=== PATIENT | male | born 1990 | race Caucasian/White ===

== ENCOUNTER 2017-11-18 17:55 | Emergency (ER) | payer MEDICAID ==
--- NOTE | 2017-11-18 18:36 | EDPHY ---
H & P Stated Complaint: wednesday chest pain intermittent palpitations Time Seen by Provider: 11/18/17 18:21 HPI/ROS: CHIEF COMPLAINT: Chest pain, intermittent palpitations HISTORY OF PRESENT ILLNESS: Patient presents to the ED with several days of a mild anterior chest pain not worsened with exertion or inspiration and subjective palpitations. The patient reports he has been experiencing increased stress. The patient denies any asymmetric calf pain or swelling. The patient does attribute his symptoms to possible anxiety however was somewhat uncertain and wanted an evaluation in the ED. The patient denies fever , cough or congestion. He denies additional acute complaints. The patient takes no regular prescription medications. REVIEW OF SYSTEMS: A comprehensive 10 point review of systems is otherwise negative aside from elements mentioned in the history of present illness. Source: Patient Exam Limitations: No limitations - Personal History Current Tetanus Diphtheria and Acellular Pertussis (TDAP): Yes - Medical/Surgical History Hx Asthma: No Hx Chronic Respiratory Disease: No Hx Diabetes: No Hx Cardiac Disease: No Hx Renal Disease: No Hx Cirrhosis: No Hx Alcoholism: No Hx HIV/AIDS: No Hx Splenectomy or Spleen Trauma: No Other PMH: denies - Social History Smoking Status: Current some day smoker - Physical Exam Exam: General Appearance: Alert, no distress Eyes: Pupils equal and round no pallor or injection ENT, Mouth: Mucous membranes moist Respiratory: There are no retractions, lungs are clear to auscultation Cardiovascular: Regular rate and rhythm Gastrointestinal: Abdomen is soft and nontender, no masses, bowel sounds normal Neurological: A&O, normal motor function, normal sensory exam, normal cranial nerves Skin: Warm and dry, no rashes Musculoskeletal: Neck is supple nontender Extremities: symmetrical, full range of motion Constitutional: Initial Vital Signs Temperature (C) 36.6 C 11/18/17 18:00 Heart Rate 73 11/18/17 18:00 Respiratory Rate 18 11/18/17 18:00 Blood Pressure 115/76 11/18/17 18:00 O2 Sat (%) 99 11/18/17 18:00 O2 Delivery Mode Room Air Allergies/Adverse Reactions: Penicillins Allergy (Verified 11/18/17 17:59) Home Medications: Medication Instructions Recorded NK [No Known Home Meds] 11/18/17 Medical Decision Making - Diagnostics EKG Interpretation: EKG: Complete interpretation has been separately recorded in the [employer] archive. Summary impression: Sinus rhythm, no ischemic changes noted, no arrhythmia Imaging Results: Imaging Impressions Chest X-Ray 11/18/17 18:35 Impression: Normal chest. ED Course/Re-evaluation: The patient presents to the ED with palpitations and chest pain. The patient does admit to being under fair amount of stress. The patient has no risk factors for cardiac disease. The patient exercises frequently without chest pain or shortness of breath. The patient's EKG demonstrates no evidence of arrhythmia or ischemia. The patient's chest x-ray demonstrates no evidence of acute disease. The patient was monitored in the emergency department for 2 hr without arrhythmia. His troponin is normal. At this point time my suspicion for acute coronary syndrome is low. I do feel that the patient can follow up with Cardiology for any ongoing palpitations. The patient will be discharged home with customary aftercare instructions and return precautions. Differential Diagnosis: Differential diagnosis considered includes anxiety reaction, acute coronary syndrome, arrhythmia, metabolic abnormality, dehydration, pneumothorax - Data Points Laboratory Results: Laboratory Results 11/18/17 18:34 11/18/17 18:30 11/18/17 11/18/17 11/18/17 18:43 18:34 18:30 WBC 6.18 10^3/uL 10^3/uL (3.80-9.50) RBC 4.40 10^6/uL 10^6/uL (4.40-6.38) Hgb 14.2 g/dL g/dL (13.7-17.5) Hct 42.2 % % (40.0-51.0) MCV 95.9 fL fL (81.5-99.8) MCH 32.3 pg pg (27.9-34.1) MCHC 33.6 g/dL g/dL (32.4-36.7) RDW 12.5 % % (11.5-15.2) Plt Count 278 10^3/uL 10^3/uL (150-400) MPV 9.0 fL fL (8.7-11.7) Neut % (Auto) 52.0 % % (39.3-74.2) Lymph % (Auto) 37.4 % % (15.0-45.0) [place] % (Auto) 8.1 % % (4.5-13.0) Eos % (Auto) 1.6 % % (0.6-7.6) Baso % (Auto) 0.6 % % (0.3-1.7) Nucleat RBC Rel Count 0.0 % % (0.0-0.2) Absolute Neuts (auto) 3.21 10^3/uL 10^3/uL (1.70-6.50) Absolute Lymphs (auto) 2.31 10^3/uL 10^3/uL (1.00-3.00) Absolute Monos (auto) 0.50 10^3/uL 10^3/uL (0.30-0.80) Absolute Eos (auto) 0.10 10^3/uL 10^3/uL (0.03-0.40) Absolute Basos (auto) 0.04 10^3/uL 10^3/uL (0.02-0.10) Absolute Nucleated RBC 0.00 10^3/uL 10^3/uL (0-0.01) Immature Gran % 0.3 % % (0.0-1.1) Immature Gran # 0.02 10^3/uL 10^3/uL (0.00-0.10) Sodium 139 mEq/L mEq/L (135-145) Potassium 4.6 mEq/L mEq/L (3.3-5.0) Chloride 106 mEq/L mEq/L (97-110) Carbon Dioxide 28 mEq/l mEq/l (22-31) Anion Gap 5 mEq/L L mEq/L (8-16) BUN 19 mg/dL mg/dL (7-23) Creatinine 1.2 mg/dL mg/dL (0.7-1.3) Estimated GFR > 60 Glucose 78 mg/dL mg/dL (70-100) Calcium 9.4 mg/dL mg/dL (8.5-10.4) POC Troponin I 0.00 ng/mL ng/mL (0.00-0.08) Point of Care Test Results: Chemistry 11/18/17 18:43 POC Troponin I 0.00 ng/mL ng/mL (0.00-0.08) Departure - Departure Disposition: Home, Routine, Self-Care Clinical Impression: Chest pain Condition: Good Instructions: Chest Pain (ED) Additional Instructions: 1. The workup in the emergency department is unrevealing for evidence of heart attack, cardiac arrhythmia or other serious explanation for chest pain. 2. It is certainly possible that stress is resulting in your symptoms of chest pain. 3. You have been given the number of our on-call nanotechnology engineering technologist if you continue to have palpitations. You should follow up with them and they may place you on an outpatient monitor for further arrhythmia monitoring. 4. Please return to the ED for markedly worsening symptoms, difficulty breathing or other concerns. Referrals: Carlos A Arguello MD [Medical Doctor] - As per Instructions
--- NOTE | 2017-11-18 18:37 | CPEKG ---
Heart Rate: 65 RR Interval: 923 P-R Interval: 120 QRSD Interval: 90 QT Interval: 412 QTC Interval: 429 P [place]: 62 QRS [place]: 93 T Wave [place]: 63 EKG Severity - OTHERWISE NORMAL ECG - EKG Impression: SINUS RHYTHM Electronically Signed By: Kvng Soler 18-Nov-2017 18:40:07
[2017-11-18 18:53] LABS: PLATELET COUNT 278 10^3/uL (150-400)
[2017-11-18 19:58] VITALS: BP 155/67
== END 2017-11-18 20:03 | disposition home or self-care (01) ==
DX: R07.9 Chest pain, unspecified (principal); F17.200 Nicotine dependence, unspecified, uncomplicated
CPT/HCPCS: 84484-PO